=== PATIENT | female | born 1995 | race Caucasian/White ===

== ENCOUNTER 2016-09-08 03:45 | Emergency (ER) | payer BC ==
[~2016-09-08] VITALS: Ht 157.5 cm; Wt 108.8 kg
[2016-09-08 03:50] VITALS: TEMP 36.7; Ht 157.5 cm; Wt 108.8 kg
--- NOTE | 2016-09-08 04:17 | EMERGENCY ROOM VISIT NOTE ---
History Report prepared by Luis Eduardo: Meka Cueva Under the Supervision of: Dr. Kareen Bonilla D.O. First contact with patient: 04:03 Chief Complaint: VAGINAL DISCHARGE Stated Complaint: BURNING,ITCHING,VAGINAL IRRITATION History of Present Illness The patient is a 21 year old female who presents to the Emergency Room with complaints of constant vaginal pain beginning 1 hour ago. The patient states that she was fine before bed and woke up 1 hour ago with agonizing pain inside her vagina. She reports that she is on her period and does not think that this is a urinary problem. She complains of vaginal stinging, burning, and pain with sitting down. She denies any unusual vaginal discharge, itchiness, fevers, and recent antibiotics. The patient states that she has had sex in the last 48 hours and uses condoms and control. She notes that she has not used any new or different underwear, soap, or condoms. She reports that she has never had a yeast infection before. The patient notes that she shaved recently but did not use a new razor. Source of History: patient Onset: 1 hour ago Position: other (vagina) Quality: burning Timing: constant Modifying Factors (Worsening): other (sitting) Associated Symptoms: No fevers Note: She complains of vaginal stinging, burning, and pain with sitting down. She denies any unusual vaginal discharge, itchiness, and recent antibiotics Review of Systems See HPI for pertinent positives & negatives. A total of 10 systems reviewed and were otherwise negative. Past Medical & Surgical Surgical Problems: (1) H/O wisdom tooth extraction (2) History of tonsillectomy Family History Cancer Diabetes mellitus Hypertension Social History Smoking Status: Never Smoker Smokeless Tobacco Use: No Alcohol Use: occasionally Housing Status: lives with friends Occupation Status: employed Current/Historical Medications No Active Prescriptions or Reported Meds Allergies Coded Allergies: Amoxicillin (Verified Allergy, Intermediate, rash, hives, 09/08/16) Physical Exam Vital Signs Date Time Temp Pulse Resp B/P Pulse Ox O2 Delivery O2 Flow Rate FiO2 09/08/16 05:00 78 18 117/72 98 Room Air 09/08/16 03:50 36.7 84 18 141/97 99 Room Air Physical Exam Neck: Supple; no cervical lymphadenopathy. Heart: Regular rate and rhythm. There is a normal S1 and S2 with no murmurs, clicks, or gallops appreciated. Lungs: Clear to auscultation bilaterally with no wheezes, rales, or rhonchi. Abdomen: Soft, completely nontender, nondistended, with good bowel sounds. There are no palpable pulsatile masses or hepatosplenomegaly. There is no guarding, rigidity, or rebound noted. Extremities: No evidence of cyanosis, clubbing, or edema. There are easily palpable peripheral pulses. Skin: warm and dry with good turgor and no rashes. Pelvic: On speculum exam there was some blood within the vaginal canal. Small amount of thick white material concerning for yeast infection. Cervix appeared healthy. On bimanual exam there was no cervical motion tenderness. Cultures were taken. Medical Decision & Procedures Medications Administered Medications (Trade) Dose Ordered Sig/Lico Route Start Time Stop Time Status Last Admin Dose Admin Fluconazole (Diflucan Tab) 150 mg STK-MED ONCE .ROUTE 09/08/16 04:46 09/08/16 04:47 DC 09/08/16 04:46 150 MG Procedure 0430: Diflucan Tab 150mg PO. ED Course 0403: Past medical records reviewed. The patient was evaluated in room A4. A complete history and physical exam was performed. A pelvic exam was performed. Cultures were taken. 0430: Diflucan Tab 150mg PO. 0449: The patient was encouraged to use Monistat if she is not having relief from the Diflucan. Medical Decision The patient is a 21 year old female who presents to the ED with vaginal pain. Differential diagnosis includes vaginal yeast infection, allergic reaction, STD , UTI. The patient's symptoms do not seem consistent with urinary tract infection. She has no external signs of cellulitis or infection as a result of shaving her pubic hair. The speculum exam did reveal some thick white discharge which would be consistent with a yeast infection. I will treat her with Diflucan and have encouraged her to follow-up with gynecology if the symptoms are not resolving. Impression Primary Impression: Vaginal yeast infection Scribe Attestation The scribe's documentation has been prepared under my direction and personally reviewed by me in its entirety. I confirm that the note above accurately reflects all work, treatment, procedures, and medical decision making performed by me. Departure Information Dispostion Home / Self-Care Prescriptions No Active Prescriptions or Reported Meds Referrals [facility] (PCP) Forms HOME CARE DOCUMENTATION FORM, IMPORTANT VISIT INFORMATION, WORK / SCHOOL INSTRUCTIONS Patient Instructions ED Vaginitis Shana, [facility] Additional Instructions Rest. If the symptoms are not resolving, you can use OTC Monistat. If symptoms won't resolve, follow up with gynecology
[2016-09-08] MEDS ORDERED: FLUCONAZOLE 100 MG TAB PO STA (04:30)
[2016-09-08] MEDS ORDERED: FLUCONAZOLE 50 MG TAB ONE (04:46)
[2016-09-08 05:00] VITALS: BP 117/72; PULSE 78; O2SAT 98
[2016-09-10 01:00] LABS: CHLAMYDIA TRACH RNA*** NOT DETECTED (NOT DETECTED); GC (NEIS GONORRHOEAE)RNA** NOT DETECTED (NOT DETECTED)
--- NOTE | 2016-09-11 15:35 | Pharmacy Progress Note ---
ED Pharmacist Culture FollowUp Date of Service: Sep 11, 2016. Called patient regarding genital culture. Prescription for clindamycin 300 mg po TID x10 days called to [facility] at the patient's request. Case discussed with Dr. Bonilla, who is the prescribing provider.
== END 2016-09-08 05:02 | disposition home or self-care (01) ==
LOC: C.EDB 03:47 → C.EDA 05:02
DX: N89.8 Other specified noninflammatory disorders of vagina (principal); Z98.890 Other specified postprocedural states; Z88.1 Allergy status to other antibiotic agents; Z80.9 Family history of malignant neoplasm, unspecified; Z83.3 Family history of diabetes mellitus; Z82.49 Family history of ischemic heart disease and other diseases of the circulatory system